=== PATIENT | female | born 2005 | race Hispanic/Latino ===

== ENCOUNTER 2025-02-26 15:04 | Outpatient (CLI) | payer OTHER, SELFPAY ==
--- NOTE | ~2025-02-26 | US_ITS ---
EXAMINATION: US pelvic complete w TV, 02/26/2025 15:40 SOUND DESIGNER HISTORY: irregular menstruation / wrist pain Comparison: None Technique: Morales-scale and color Doppler images were obtained. Findings: Uterus: Uterus anteverted 7.1 x 3 x 3.9 cm. . Endometrium 8 mm. Right Ovary:Right ovary 2.9 x 1.6 x 2.3 cm, no adnexal mass, normal flow. Left Ovary: Left ovary 2.5 x 1.7 x 1.9 cm, no adnexal mass, normal flow. Free Fluid: None Impression: No etiology to explain the patient's symptoms Reviewed, dictated and finalized at location P. D DESIGNER Impression: No etiology to explain the patient's symptoms
--- NOTE | ~2025-02-26 | XR_ITS ---
EXAMINATION: XR hand RT min 3V, 02/26/2025 15:30 SECRETARY OF POLICE HISTORY: PAIN IN HAND AND WRIST COMPARISON: No comparisons available. Findings: No acute fracture or malalignment. No significant degenerative changes. Soft tissues unremarkable. Impression: No acute fracture or malalignment. Reviewed, dictated and finalized at location P. ETARY OF POLICE Impression: No acute fracture or malalignment.
--- NOTE | ~2025-02-26 | XR_ITS ---
EXAMINATION: XR wrist RT min 3V, 02/26/2025 15:30 PLANT ASSIGNER HISTORY: PAIN IN HAND AND WRIST COMPARISON: No comparisons available. Findings: No acute fracture or malalignment. No significant degenerative changes. Soft tissues unremarkable. Impression: No acute fracture or malalignment. Reviewed, dictated and finalized at location P. T ASSIGNER Impression: No acute fracture or malalignment.
--- OUTSIDE RECORDS SUMMARY | 2025-02-26 15:11 | XMS_ITS | Clinical Summary ---
Author Organization [facility] Address [address] [place] [address] Care Team Providers Care Aggregate Conveyor Operator Name Role Phone Unavailable Primary Care Provider Unavailabl e Social History Tobacco Use Types Packs/Day Years Used Date Smoking Tobacco: Never Assessed Comments Unknown Sex and Gender Information Value Date Recorded Sex Assigned at Not on file Legal Sex Female 8:19 PM CDT Gender Identity Not on file Sexual Orientation Not on file Plan of Treatment Health Maintenance Due Date Last Done Comments Annual Physical 2008 HPV Vaccines (1 - 3-dose series) 2020 Meningococcal B Vaccine (1 o f 2 - Standard) 2021 Hepatitis C 2023 DTaP, Tdap and Td Vaccines ( 1 - Tdap) 2024 Hepatitis B Vaccines (1 of 3 - 19+ 3-dose series) 2024 COVID-19 Vaccine ( - 2024-2 6 season) 2024 Influenza Adult (#1) 2025 Hepatitis A Vaccines Aged Out No long er eligible based on patient's age to complete this topic Meningococcal Vaccine Aged Out No antonia danielito eligible based on patient's age to complete this topic Pneumococcal Vaccine: Pediat rics (0 to 5 Years) and At-Risk Patients (6 to 49 Years) Aged Out No longer eligible b ased on patient's age to complete this topic RSV Immunizations Under 20 Months Aged Out No longer eligible based on patient's age to complete this topic
--- OUTSIDE RECORDS SUMMARY | 2025-02-26 15:11 | XMS_ITS | Clinical Summary ---
Author Organization [facility] Address [address] [place] [address] Care Team Providers Care Sign Shop Supervisor Name Role Phone Radha Ponce CLINICAL ASSISTANT-CHIEF STATION ENGINEER Primary Care Provider + Source Comments [facility],non-owned Affiliates and Associated Physician Practices is amultiple site organization consisting of ambulatory clinics and hospital sitesin [place], [place], [place] and [place]. This disclosure is being madepursuant to the Care Everywhere program and may not contain all information available regarding this patient. Last updated 17.[facility] Allergies No known active allergies Medications * Be aware that medications may not be up to date on this document. Alwaysverify current medications with the patient. cyproheptadine (PERIACTIN) 2 MG/5ML syrupIndications :Migraine Prophylaxis Take 10 mL by mouth at bedtime. 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 Social History Tobacco Use Types Packs/Day Years Used Date Smoking Tobacco: Never Smokeless Tobacco: Never Comments No Sex and Gender Information Value Date Recorded Sex Assigned at Not on file Legal Sex Female 5:45 AM CHIEF CHEMIST Gender Identity Not on file Sexual Orientation Not on file Last Filed Vital Signs Vital Sign Reading Time Taken Comments Blood Pressure 126/66 05/24/2019 9:13 AM CHIEF CHEMIST Pulse 83 05/24/2019 9:13 AM CHIEF CHEMIST Temperature 36.8 C (98.2 F) 05/24/2019 9:13 AM CHIEF CHEMIST Respiratory Rate 16 05/24/2019 9:13 AM CHIEF CHEMIST Oxygen Saturation 100% 05/24/2019 9:13 AM CHIEF CHEMIST Inhaled Oxygen Concentration 100% 04/11/2019 3 :22 PM CHIEF CHEMIST Weight 77.5 kg (170 lb 13.7 oz) 05/24/2019 9:13 AM CHIEF CHEMIST Height 162 cm (5' 3.78) 05/24/2019 9:13 AM CHIEF CHEMIST Body Mass Index 29.53 05/24/2019 9:13 AM CHIEF CHEMIST Body Mass Index Percentile 96.46% 05/24/2019 9:1 3 AM CHIEF CHEMIST Growth Chart: CDC (Girls, 2- 20 Years) Plan of Treatment Health Maintenance Due Date Last Done Comments HIV SCREENING 2020 HPV VACCINE (1 - 3-dose series) 2020 CHLAMYDIA/GONORRHEA SCREENING 2021 MENINGOCOCCAL (Group B) VACC INE SHARED DECISION-MAKING (1 of 2 - Standard) 2021 HEPATITIS C SCREENING 04/01/2023 DEPRESSION SCREENING 04/03/2024 DTAP/TDAP/TD VACCINES (1 - Tdap) 2024 HEPATITIS B VACCINE (1 of 3 - 19+ 3-dose series) 2024 COVID-19 VACCINE ( - 2024-2 6 season) 2024 INFLUENZA VACCINE (#1) 2024 ZOSTER VACCINE (1 of 2) 2055 HIB VACCINE Aged Out No longer eligi ble based on patient's age to complete this topic MENINGOCOCCAL GROUPS A/C/Y/W VACCINE Aged Out No longer eligible b ased on patient's age to complete this topic PNEUMOCOCCAL VACCINE Aged Out No long er eligible based on patient's age to complete this topic Insurance MEDICAID - [place] [facility] MEDICAID [facility] Care Teams Sign Shop Supervisor Relationship Specialty Start Date End Date Radha Ponce, CLINICAL ASSISTANT-CHIEF STATION ENGINEER [id number] [address] PCP - General Nurse Practitioner 08/09/12
== END 2025-02-26 15:05 | disposition home or self-care (01) ==
PROVIDERS: PCP Physician Assistant; Visit Provider Physician Assistant
DX: N92.6 Irregular menstruation, unspecified (principal); M79.641 Pain in right hand
CPT/HCPCS: 73110; 73130; 76830; 76856